=== PATIENT | male | born 2005 | race Caucasian/White ===

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

== ENCOUNTER 2024-01-16 12:35 | Emergency (ER) | payer OTHER ==
[2024-01-16 12:54] VITALS: TEMP 98.6
[2024-01-16 13:37] LABS: AMPHETAMINES LEVEL URINE NEGATIVE (NEGATIVE); BARBITURATES URINE NEGATIVE (NEGATIVE); BENZODIAZEPINES URINE NEGATIVE (NEGATIVE); COCAINE METABOLITE URINE NEGATIVE (NEGATIVE)
[2024-01-16 13:38] LABS: CANNABINOIDS URINE NEGATIVE (NEGATIVE); METHADONE URINE NEGATIVE (NEGATIVE); OPIATES URINE NEGATIVE (NEGATIVE); PHENCYCLIDINE URINE NEGATIVE (NEGATIVE)
[2024-01-16 14:43] VITALS: O2SAT 98
[2024-01-16 15:05] VITALS: BP 110/61; O2SAT 98
== END 2024-01-16 15:30 | disposition home or self-care (01) ==
LOC: EDBD 12:35 → M ED 12:35
DX: R55 Syncope and collapse (principal); I45.10 Unspecified right bundle-branch block; R00.1 Bradycardia, unspecified; F32.A Depression, unspecified